=== PATIENT | female | born 1985 | race Caucasian/White ===

== ENCOUNTER → 2021-04-13 14:38 | Outpatient (BNVA) | payer OTHER, SELFPAY | PROVIDERS: Visit Provider Obstetrics & Gynecology | DX: Z12.4 Encounter for screening for malignant neoplasm of cervix (principal) | CPT/HCPCS: 87624 ==

== ENCOUNTER → 2021-05-11 08:25 | Outpatient (BNVA) | payer OTHER, SELFPAY | PROVIDERS: Visit Provider Obstetrics & Gynecology | DX: R87.810 Cervical high risk human papillomavirus (HPV) DNA test positive (principal) | CPT/HCPCS: 81025; 88305 ==

== ENCOUNTER → 2021-06-30 08:13 | Outpatient (BNVA) | payer OTHER, SELFPAY | PROVIDERS: Visit Provider Family Medicine | DX: M25.572 Pain in left ankle and joints of left foot (principal) | CPT/HCPCS: 73600 ==

== ENCOUNTER 2021-10-15 10:33 | Outpatient (CLI) | payer OTHER, SELFPAY ==
--- NOTE | 2021-10-15 12:32 | ECG_ITS ---
[facility] Test Date: 2021-10-15 Pat Name: Ruben Mtz Department: Room: Gender: Female Chair Installer: : 1985 Requested By: Francisco J Simpson Order Number: [id number] Neal MD: Anayeli Crawford M.D. Measurements Intervals Maud Rate: 90 P: 54 FL: 149 QRS: 17 QRSD: 103 T: 52 QT: 335 QTc: 410 Interpretive Statements SINUS RHYTHM POSSIBLE LEFT ATRIAL ENLARGEMENT [-0.1mV P-WAVE IN V1/V2] No previous ECG available for comparison Electronically Signed On 10-15-2021 18:55:04 CDT by Anayeli Crawford M.D. [email or web address] [facility] residential centerSocialRepmemorial health systemGRNE Solutions/store/[id number]
== END 2021-10-15 10:34 | disposition home or self-care (01) ==
LOC: RT 10:35
PROVIDERS: PCP Family Medicine; Visit Provider Family Medicine
DX: R00.2 Palpitations (principal); Z76.89 Persons encountering health services in other specified circumstances; R03.0 Elevated blood-pressure reading, without diagnosis of hypertension
CPT/HCPCS: 80053; 83735; 84439; 84443; 85025; 93005

== ENCOUNTER → 2021-11-16 10:06 | Outpatient (BNVA) | payer OTHER, SELFPAY | PROVIDERS: PCP Family Medicine; Visit Provider Obstetrics & Gynecology | DX: N72 Inflammatory disease of cervix uteri (principal); B97.7 Papillomavirus as the cause of diseases classified elsewhere | CPT/HCPCS: 87624 ==

== ENCOUNTER → 2022-02-05 13:33 | Outpatient (BNVA) | payer OTHER, SELFPAY | PROVIDERS: PCP Family Medicine; Visit Provider Obstetrics & Gynecology | DX: R87.619 Unspecified abnormal cytological findings in specimens from cervix uteri (principal); A49.9 Bacterial infection, unspecified; N39.0 Urinary tract infection, site not specified | CPT/HCPCS: 84315; 88305 ==

== ENCOUNTER → 2022-04-09 17:20 | Outpatient (BNVA) | payer OTHER, SELFPAY | PROVIDERS: PCP Family Medicine; Visit Provider Nurse Practitioner Women's Health | DX: Z20.2 Contact with and (suspected) exposure to infections with a predominantly sexual mode of transmission (principal); N89.8 Other specified noninflammatory disorders of vagina | CPT/HCPCS: 87481; 87491; 87512; 87591; 87661; 87798; 87799 ==

== ENCOUNTER → 2022-06-28 12:00 | Outpatient (BNVA) | payer OTHER, SELFPAY | PROVIDERS: PCP Family Medicine; Visit Provider Obstetrics & Gynecology | DX: Z01.419 Encounter for gynecological examination (general) (routine) without abnormal findings (principal); B97.7 Papillomavirus as the cause of diseases classified elsewhere; N72 Inflammatory disease of cervix uteri | CPT/HCPCS: 87624 ==

== ENCOUNTER → 2022-11-11 13:53 | Outpatient (BNVA) | payer OTHER, SELFPAY | PROVIDERS: PCP Family Medicine; Visit Provider Emergency Medicine | DX: J06.9 Acute upper respiratory infection, unspecified (principal); Z20.822 Contact with and (suspected) exposure to COVID-19 | CPT/HCPCS: 87426 ==

== ENCOUNTER → 2022-12-02 08:32 | Outpatient (BNVA) | payer OTHER, SELFPAY | PROVIDERS: PCP Family Medicine; Visit Provider Family Medicine | DX: I10 Essential (primary) hypertension (principal); R00.2 Palpitations | CPT/HCPCS: 80053; 80061; 84443; 85025 ==

== ENCOUNTER 2023-01-13 16:13 | Emergency (ER) | payer OTHER, SELFPAY ==
[2023-01-13 16:17] VITALS: BP 164/118; PULSE 118; RESP 16; TEMP 36.6; O2SAT 100; BMI 37.8
[2023-01-13 16:48] LABS: Basophils % 0.3 %; Eosinophils # 0.1 10^3/uL (0.0-0.8); Eosinophils % 0.5 %; Lymphocytes % 41.4 %; Mean Corpuscular HGB Conc 33.4 g/dL (30-55); Mean Corpuscular Hemoglobin 28.6 pg (27-33); Mean Corpuscular Volume 85.6 fl (85-98); Mean Platelet Volume 9.1 fL (7.4-10.4); Monocytes # 0.6 10^3/uL (0.2-0.9); Monocytes % 6.4 %; Neutrophils % 51.2 %; Nucleated Red Blood Cells % 0 %; Platelet Count 375 10^3/cmm (157-399); Red Blood Count 4.44 10^6/uL (3.85-5.65); White Blood Count 9.58 10^3/uL (3.29-11.43)
[2023-01-13 17:04] LABS: HCG, Serum Qual Negative (Negative)
--- NOTE | 2023-01-13 17:06 | W.ED.ABDPA2 ---
HPI - Abdominal Pain General: Chief Complaint: Abdominal Pain Stated Complaint: lower abdomin pain Time Seen by Provider: 01/13/23 16:24 History of Present Illness: 37-year-old female comes in today with complaints of right upper quadrant pain that started around 230 this afternoon. Patient reported as sharp and very uncomfortable. Patient has been having abdominal pain on and off for the last 3 weeks and was scheduled for gallbladder ultrasound tomorrow. Patient reports nausea with some loose stools but no vomiting. Patient has no history of prior surgeries. Patient does have some history of hypertension and hyperglycemia and nonepileptic seizures. Patient appears nontoxic. Patient appears in mild pain. Associated Symptoms: Reports nausea; Denies constipation, diarrhea, fever(s) and vomiting Related Data: Date of Last Menstrual Period: 12/21/22 Review of Systems General: Reports: 10 or more systems reviewed and unremarkable except in HPI and below Const: Denies: fever(s) Card: Denies: chest pain Resp: Denies: dyspnea GI: Reports: abdominal pain and nausea; Denies: vomiting, diarrhea or constipation : Denies: flank pain or difficulty voiding Musc: Denies: neck pain or back pain Skin/Breast: Denies: rash PFSH ED PFSH: Medical History Abnormal Pap smear of cervix Bartholin's cyst Psychiatric care Family History Grandfather Heart attack maternal Cancer throat cancer, maternal Diabetes maternal Hyperlipidemia maternal Hypertension maternal Father CAD (coronary artery disease) Family/Other CAD (coronary artery disease) maternal aunt Grandmother Diabetes paternal Sister Ovarian cyst Denies family history of Ovarian cancer Heart disease Chronic kidney disease (CKD) Anesthesia complication Family history of thyroid problem Bleeding disorder Stroke Social History Substance/Drug Use: never Female Reproductive History: Date of last menstrual period: 12/21/22 Spontaneous abortions: No Physical Exam Const: COMMON NORMALS: alert HENMT: COMMON NORMALS: normocephalic HEAD & SCALP: normocephalic MOUTH: Normal oral and palatal mucosa present Neck/C-Spine: COMMON NORMALS: full ROM Resp: COMMON NORMALS: normal respiratory effort and clear to auscultation bilaterally AUSCULTATION: clear to auscultation bilaterally Cardio: COMMON NORMALS: regular rate and regular rhythm RATE: regular rate RHYTHM: regular rhythm GI: COMMON NORMALS: Soft to palpation AUSCULTATION: Yes normoactive bowel sounds PALPATION: Yes Soft to palpation and Yes Tenderness to palpation present (GI) Details: RUQ : COMMON NORMALS: Yes no CVA tenderness BLADDER/KIDNEY EXAM: Yes no CVA tenderness Back/Pelvis: COMMON NORMALS: no CVA tenderness and thoracic and lumbar spine normal to inspection Extremity: COMMON NORMALS: normal to inspection Neuro: SENSORIUM/ORIENTATION: Yes alert Skin: COMMON NORMALS: turgor normal GENERAL SKIN EXAM: turgor normal Course Vital Signs: Vital signs: Vital Signs Temperature 97.8 F 01/13/23 16:17 Pulse Rate 118 H 01/13/23 16:17 Respiratory Rate 16 01/13/23 16:17 Blood Pressure 164/118 01/13/23 16:17 Pulse Oximetry 100 01/13/23 16:17 Oxygen Delivery Me thod Room Air 01/13/23 16:17 MDM - Abdominal Pain Medical Decision Making 37-year-old female comes in today for complaints of right upper quadrant abdominal pain. Patient reports increased pain and discomfort today which prompted her to come to the ER. Patient is scheduled to have a ultrasound of the gallbladder tomorrow. On exam patient has right upper quadrant abdominal tenderness. No CVA tenderness. Abdomen soft with normal active bowel sounds. Vital signs are normal except for some mild elevation of blood pressure. Differential diagnosis includes but not limited to gallbladder colic, cholecystitis, cholelithiasis, pancreatitis, gastroenteritis, colitis. Laboratory values were unremarkable. Ultrasound of the gallbladder was normal. Reviewed exam with patient recommended follow-up with primary care for further examination with possible HIDA scan for further evaluation of gallbladder. Discussed need for return to the ER for worsening symptoms such as blood in vomit or stool, high fever, or new concerns. Patient stated understanding and agreed to plan. Lab Data 01/13/23 16:41 01/13/23 16:41 Labs/Radiology: Radiology Impressions Gallbladder Ultrasound 01/13/23 17:13 IMPRESSION: No abnormal findings. Laboratory Results WBC 9.58 10^3/uL (3.29-11.43) 01/13/23 16:41 RBC 4.44 10^6/uL (3.85-5.65) 01/13/23 16:41 Hgb 12.70 g/dL (11.27-16.99) 01/13/23 16:41 Hct 38.0 % (36-47) 01/13/23 16:41 MCV 85.6 fl (85-98) 01/13/23 16:41 MCH 28.6 pg (27-33) 01/13/23 16:41 MCHC 33.4 g/dL (30-55) 01/13/23 16:41 RDW 12.0 % (12.1-15.1) L 01/13/23 16:41 Plt Count 375 10^3/cmm (157-399) 01/13/23 16:41 MPV 9.1 fL (7.4-10.4) 01/13/23 16:41 Neut % (Auto) 51.2 % 01/13/23 16:41 Lymph % (Auto) 41.4 % 01/13/23 16:41 Morton % (Auto) 6.4 % 01/13/23 16:41 Eos % (Auto) 0.5 % 01/13/23 16:41 Baso % (Auto) 0.3 % 01/13/23 16:41 Neut # (Auto) 4.90 10^3/uL (1.8-7.7) 01/13/23 16:41 Lymph # (Auto) 4.0 10^3/uL (0.8-4.8) 01/13/23 16:41 Morton # (Auto) 0.6 10^3/uL (0.2-0.9) 01/13/23 16:41 Eos # (Auto) 0.1 10^3/uL (0.0-0.8) 01/13/23 16:41 Baso # (Auto) 0.0 10^3/uL (0.0-0.1) 01/13/23 16:41 Nucleated RBC % (auto) 0 % 01/13/23 16:41 Nucleated RBCs # 0.0 /100WBC 01/13/23 16:41 Sodium 138 mmol/L (136-145) 01/13/23 16:41 Potassium 3.3 mmol/L (3.5-5.1) L 01/13/23 16:41 Chloride 102 mmol/L (98-107) 01/13/23 16:41 Carbon Dioxide 24 mmol/L (22-29) 01/13/23 16:41 Anion Gap 15.3 (5-19) 01/13/23 16:41 BUN 7 mg/dL (6-20) 01/13/23 16:41 Creatinine 0.6 mg/dL (0.5-0.9) 01/13/23 16:41 GFR Calculation 113.8 mL/min (90-130) 01/13/23 16:41 Glucose 104 mg/dL (65-115) 01/13/23 16:41 Calculated Osmolality 284 mOsm/kg (285-295) L 01/13/23 16:41 Calcium 9.2 mg/dL (8.5-10.5) 01/13/23 16:41 Total Bilirubin 0.2 mg/dL (0.15-1.2) 01/13/23 16:41 AST 14 U/L (0-32) 01/13/23 16:41 ALT 12 U/L (0-33) 01/13/23 16:41 Alkaline Phosphatase 66 U/L (35-105) 01/13/23 16:41 Total Protein 7.5 g/dL (6.6-8.7) 01/13/23 16:41 Albumin 4.1 g/dL (3.5-5.2) 01/13/23 16:41 Globulin 3.4 g/dL (1.3-4.6) 01/13/23 16:41 Lipase 29 U/L (13-60) 01/13/23 16:41 HCG, Qual Negative (Negative) 01/13/23 16:41 Urine Color Light yellow (Yellow) 01/13/23 17:18 Urine Appearance Clear (CLEAR) 01/13/23 17:18 Urine pH 6 (5-7) 01/13/23 17:18 Ur Specific [place] 1.010 (1.005-1.030) 01/13/23 17:18 Urine Protein Neg (Negative) 01/13/23 17:18 Urine Glucose (UA) Norm (Normal) 01/13/23 17:18 Urine Ketones Negative (Negative) 01/13/23 17:18 Urine Blood Neg (Negative) 01/13/23 17:18 Urine Nitrate Negative (Negative) 01/13/23 17:18 Urine Bilirubin Neg (Negative) 01/13/23 17:18 Urine Urobilinogen Norm mg/dL (Negative) 01/13/23 17:18 Ur Leukocyte Esterase Negative (Negative) 01/13/23 17:18 No radiology studies performed this visit Discharge Plan Discharge Patient Disposition: Home Clinical Impression: RUQ pain Condition: Stable Prescriptions: New hydrocodone-acetaminophen 5-325 mg tablet 1 tab PO Q6H PRN (Reason: pain) Qty: 10 0RF No Action fluticasone propionate [Flonase Allergy Relief] 50 mcg/actuation spray,suspension 1 spray intranasal DAILY Qty: 16 1RF Rx Instructions: administer into each nostril norgestimate-ethinyl estradiol [Tri-Sprintec (28)] 0.18/0.215/0.25 mg-35 mcg (28) tablet 1 tab PO DAILY Qty: 84 5RF silver nitrate applicators 75-25 % stick 1 applic topical ONCE Qty: 1 0RF Probiotic 15 billion cell capsule, sprinkle 1 cap PO DAILY Rx Instructions: do not crush/chew/cut; swallow whole OR may open and sprinkle in cold drink/food lisinopril 10 mg tablet 10 mg PO DAILY Qty: 90 1RF amlodipine 2.5 mg tablet 2.5 mg PO DAILY Qty: 90 2RF Discharge Orders: Discharge ED (Routine); Ordered 01/13/23 Ordered By: Karthik Clements Referrals: Francisco J Aranda DO [Primary Care Provider] - Discharge Diet: Advance as tolerated Discharge Activity: Increase activity as tolerated Patient Instructions: Abdominal Pain (ED), Opioid Safety Activity Restrictions/Additional Instructions: Follow-up with primary care for further evaluation and treatment. You may need to have further evaluation of your gallbladder with a HIDA scan. The scan injects dye into the gallbladder to monitor report dysmotility issues. The remainder of your tests today were unremarkable. I would recommend follow-up with primary care for further concerns. Return to ED for new concerns or worsening symptoms such as high fever, inability to hold fluids down, blood in vomit or stool. Coding Level of Care Code ED Firm Administrator for Drake Harper
[2023-01-13 17:10] LABS: Alanine Aminotransferase 12 U/L (0-33); Albumin Level 4.1 g/dL (3.5-5.2); Alkaline Phosphatase 66 U/L (35-105); Anion Gap 15.3 (5-19); Aspartate Amino Transferase 14 U/L (0-32); Blood Urea Nitrogen 7 mg/dL (6-20); Calcium 9.2 mg/dL (8.5-10.5); Carbon Dioxide 24 mmol/L (22-29); Chloride 102 mmol/L (98-107); Creatinine Clr Calc Pharmacy 150.2706; Globulin 3.4 g/dL (1.3-4.6); Glomerular Filtration Rate 113.8 mL/min (90-130); Glucose 104 mg/dL (65-115); Lipase 29 U/L (13-60); Osmolality Calculated 284 mOsm/kg (285-295); Potassium 3.3 mmol/L (3.5-5.1); Sodium 138 mmol/L (136-145); Total Bilirubin 0.2 mg/dL (0.15-1.2); Total Protein 7.5 g/dL (6.6-8.7)
--- NOTE | 2023-01-13 17:13 | USR_ITS ---
PROCEDURE INFORMATION: Exam: US Abdomen, Limited; Right Upper Quadrant Exam date and time: 01/13/2023 5:25 PM Age: 37 years old Clinical indication: Abdominal pain; Additional info: Ruq pain, nausea TECHNIQUE: Imaging protocol: Real time ultrasound of the abdomen with image documentation. Limited exam focused on the right upper quadrant. COMPARISON: No relevant prior studies available. FINDINGS: Liver: Normal. No masses. Liver measures 14.4 cm in length. Normal portal vein. Gallbladder: Normal. No gallstones. There is no gallbladder wall thickening. Biliary ducts: Normal. No stones. No dilation. Pancreas: Visualized pancreas is unremarkable. Right kidney: Normal. No mass. No hydronephrosis. Aorta: Aorta is normal as visualized. Inferior vena cava: Inferior vena cava is normal as visualized. US/US gall bladder [id number] IMPRESSION: No abnormal findings.
[2023-01-13 17:30] LABS: Add Urine Microscopic? NO; Charge for UA Resulting for Rev
[2023-01-13 17:42] LABS: Bilirubin Urine Neg (Negative); Blood Urine Neg (Negative); Glucose Urine UA Norm (Normal); Ketones Urine Negative (Negative); Leukocyte Esterase Urine Negative (Negative); Nitrate Urine Negative (Negative); Protein Urine Neg (Negative); Urine Appearance Clear (CLEAR); Urine Color Light yellow (Yellow); Urobilinogen Urine Norm (Negative); pH Urine 6 (5-7)
== END 2023-01-13 18:35 | disposition home or self-care (01) ==
PROVIDERS: Emergency Medicine; Emergency Provider Nurse Practitioner Family; PCP Family Medicine
DX: R10.11 Right upper quadrant pain (principal)
CPT/HCPCS: 36415; 76705; 80053; 81003; 83690; 84703; 85025; 99284

== ENCOUNTER 2023-03-08 07:01 | Outpatient (CLI) | payer OTHER, SELFPAY ==
--- NOTE | 2023-03-08 08:00 | NM_ITS ---
WS: [id number] NUCLEAR MEDICINE HIDA SCAN CLINICAL INFORMATION: RUQ pain, post-prandial n/v/bloating TECHNIQUE: Following intravenous administration of 4.8 mCi of technetium 99m mebrofenin, images of th e abdomen were obtained over the course of 60 minutes. Next, gallbladder ejection fraction was determ ined by obtaining preprandial and one-hour postprandial images of the gallbladder following oral mariposa stion of Ensure. COMPARISON: None. FINDINGS: Normal hepatic uptake at 5 minutes. Normal hepatic excretion. Normal common bile duct and small bowel activity. Gallbladder is visualized by 20 minutes. No evidence of acute cholecystitis. Decreased gallbladder ejection fraction 23%. Findings compatible with gallbladder dyskinesia. Recomme nd correlation for chronic cholecystitis. IMPRESSION: Decreased gallbladder ejection fraction 23%. Findings compatible with gallbladder dyskinesia. Recomm end correlation for chronic cholecystitis.
== END 2023-03-08 07:02 | disposition home or self-care (01) ==
PROVIDERS: PCP Family Medicine; Visit Provider Family Medicine
DX: R14.0 Abdominal distension (gaseous) (principal); R10.11 Right upper quadrant pain; R11.2 Nausea with vomiting, unspecified; R93.2 Abnormal findings on diagnostic imaging of liver and biliary tract
CPT/HCPCS: 78227; A9537

== ENCOUNTER 2023-04-18 05:41 | Day surgery (SDC) | payer OTHER, SELFPAY ==
[2023-04-18] VITALS (10 sets, daily range): BP systolic 122–156; BP diastolic 78–118; PULSE 54–99; RESP 14–18; TEMP 36.2–36.4; O2SAT 93–100
--- NOTE | 2023-04-18 06:23 | W.PM.OPSFHP ---
Same Day Surgery H&P Indication for Procedure/HPI DATE OF PROCEDURE: April 18, 2023 CHIEF COMPLAINT/INDICATIONFOR SURGICAL PROCEDURE: chronic cholecystitis PREOP DIAGNOSIS: chronic cholecystitis PLANNED PROCEDURE: Operation Date: 04/18/23 07:00 Proposed Procedures p 42968 lap khadijah R10.11(Not Applicable) - Byron Jiménez MD Medications/Allergies* Home Medications Medication Instructions Recorded Confirmed Type lactobacillus combo no.11 15 1 cap PO DAILY 04/09/22 04/15/23 History billion cell sprinkle capsule (Probiotic) fluticasone propionate 50 1 spray intranasal DAILY PRN 04/15/23 04/15/23 History mcg/actuation nasal allergies spray,suspension (Flonase Allergy Relief) jakxrvjtqcfd-Pg-phin-minerals 18 1 tab PO DAILY 04/15/23 04/15/23 History mg-0.4 mg tablet Allergies/Adverse Reactions Allergy/AdvReac Type Severity Reaction Status Date / Time No Known Allergies Allergy Verified 04/18/23 06:00 Pertinent History/Comorbid Conditions* Medical History (Updated 03/11/23 @ 13:05 by Byron Jiménez MD) Abnormal Pap smear of cervix Psychiatric care Bartholin's cyst Family History (Updated 04/07/20 @ 13:29 by Joan Aragon LPN) Diabetes Grandfather maternal Grandmother paternal Ovarian cyst Sister CAD (coronary artery disease) Father Family/Other maternal aunt Hyperlipidemia Grandfather maternal Heart attack Grandfather maternal Cancer Grandfather throat cancer, maternal Hypertension Grandfather maternal Denies family history of Ovarian cancer Heart disease Chronic kidney disease (CKD) Anesthesia complication Family history of thyroid problem Bleeding disorder Stroke Social History Substance/Drug Use: never Pertinent Exam Findings alert, oriented x 3, clear to auscultation bilaterally and regular rate & rhythm Recommendations Surgery/Procedure today Coding Level of Care Code Acute Code for Chg Fwd
[2023-04-18] MEDS: sodium chloride 0.9% 1,000 ML 30 ML IV (06:53)
[2023-04-18] MEDS: scopolamine 1.5 Patch 1 PATCH TRANSDERMA (06:54)
[2023-04-18 06:59] LABS: OR HCG Qualitative Urine Negative (Negative)
[2023-04-18] MEDS: ceFAZolin 2,000 MG in sodium chloride 0.9% (plus) 50 ML 100 MG IV (07:00)
--- NOTE | 2023-04-18 07:19 | P.ANESASSM_ITS ---
Pre-Anesthetic Assessment Height/Weight: Height 1.63 m Weight 92.986 kg Temp Pulse Resp BP Pulse Ox O2 Del Method 97.5 F L 99 18 156/118 99 Room Air 04/18/23 06:45 04/18/23 06:45 04/18/23 06:45 04/18/23 06:45 04/18/23 06:45 04/18/23 06:45 Preop Diagnosis: chronic cholecystitis Operation Date: 04/18/23 07:00 Proposed Procedures p 22691 lap khadijah R10.11(Not Applicable) - Byron Jiménez MD Familial anesthetic complications: Mother is slow to wake up Was Beta Zain taken within 24 hours: N/A Was Clonidine taken within 24 hours: N/A Last intake: Intake Last Liquid Date 04/17/23 Last Liquid Time 23:00 Last Solid Date 04/17/23 Last Solid Time 23:00 Social No alcohol and No tobacco Exam alert, oriented x 3, clear to auscultation bilaterally and regular rate & rhythm Airway Submandibular: within normal limits Cervical ROM: within normal limits Mallampati: Class I Dentition: full History/ROS No significant history except as noted Pulmonary None reported CV/HEM Hypertension and Palpitations None reported Hepatic None reported GI None reported Metabolic Hyperlipidemia and Morbid Obesity hypoglycemic issues [facility] None reported Neuropsych None reported Anesthetic Plan ASA status: 2 Anesthesia: General Medications/Allergies Home Medications Medication Instructions Recorded Confirmed Last Taken Type lactobacillus combo no.11 15 1 cap PO DAILY 04/09/22 04/15/23 04/17/23 History billion cell sprinkle capsule (Probiotic) norgestimate-ethinyl estradiol 1 tab PO DAILY #84 tabs 07/01/22 04/15/23 04/15/23 Rx 0.18 mg/0.215mg/0.25mg-35 mcg(28)tablet (Tri-Sprintec (28)) amlodipine 2.5 mg tablet 2.5 mg PO DAILY #90 tabs 08/30/22 04/15/23 04/18/23 Rx fluticasone propionate 50 1 spray intranasal DAILY PRN 04/15/23 04/15/23 04/15/23 History mcg/actuation nasal allergies spray,suspension (Flonase Allergy Relief) hyrhplvhoqoy-Im-padg-minerals 18 1 tab PO DAILY 0204/15/23 04/17/23 History mg-0.4 mg tablet Allergies Allergy/AdvReac Type Severity Reaction Status Date / Time No Known Allergies Allergy Verified 04/18/23 06:00 Current Medications Generic Name Dose Route Start Last Admin Trade Name García PRN Reason Stop Dose Admin Sodium Chloride 1,000 mls @ 30 mls/hr 04/18/23 06:45 04/18/23 06:53 Sodium Chloride 0.9% IV 04/19/23 06:44 30 mls/hr .Q24H KAITLIN Administration PFSH Anesthesia Medical History (Updated 03/11/23 @ 13:05 by Byron Jiménez MD) Abnormal Pap smear of cervix Psychiatric care Bartholin's cyst Family History Grandfather Heart attack maternal Cancer throat cancer, maternal Diabetes maternal Hyperlipidemia maternal Hypertension maternal Father CAD (coronary artery disease) Family/Other CAD (coronary artery disease) maternal aunt Grandmother Diabetes paternal Sister Ovarian cyst Denies family history of Ovarian cancer Heart disease Chronic kidney disease (CKD) Anesthesia complication Family history of thyroid problem Bleeding disorder Stroke Social History Substance/Drug Use: never Female Reproductive History Date of last menstrual period: 03/16/23 Spontaneous abortions: No Data Anesthesia Cardiac Studies: No Data to Display
[2023-04-18] MEDS: lidocaine-epi 1% 20 mL INJ INJECTION (07:23)
[2023-04-18] MEDS: BUPivacaine 0.25% INJ 10 mL INJECTION (07:23)
--- NOTE | 2023-04-18 08:42 | P.OP_ITS ---
Operative Report Date of procedure: April 18, 2023 Pre-op diagnosis: Chronic cholecystitis Post-op diagnosis: Chronic cholecystitis Procedure done: laparoscopic cholecystectomy Specimens removed/disposition: Gallbladder Surgeon: Byron Jiménez MD Machine Assistant: IGOR OR Staff Estimated blood loss: 5 Findings: Chronically inflamed gallbladder, there were adhesions from the omentum to the gallbladder and from the periduodenal tissue to the gallbladder. The gallbladder was intrahepatic. Brief History: 37-year-old female with chronic cholecystitis who presented for lap khadijah. After discussion of all the risk and benefits as documented in my preop note we decided to proceed with surgery. Procedure: Patient was brought into the OR, she was placed in a supine position. General esthesia was given. The abdomen was prepped and draped in the usual sterile fashion. Timeout was conducted. The abdomen was accessed via infraumbilical incision with an open technique, a 12 mm Funez trocar was placed and fixed to the fascia with a 0 Vicryl. Initial pneumoperitoneum was achieved and no evidence of visceral injury was noted upon entry. Additional 5 mm trocars were placed in the epigastric right upper quadrant and right flank positions under direct visualization. The patient was positioned in reverse Trendelenburg position with the left side down. The gallbladder was retracted cephalad from the fundus. Additions from the omentum to the gallbladder and from the periduodenal tissue to the gallbladder were carefully taken down using electrocautery and blunt dissection. There was also an additional from some fat to the liver capsule that was removed with electrocautery. The infundibulum of the gallbladder was retracted in the inferolateral direction. The peritoneum anterior to hepatocystic triangle was opened with electrocautery, the opening was carried in the medial and lateral directions to the edges of the liver and then to the size of the gallbladder to allow for better exposure. Gallbladder was noted to be intra hepatic, the fundus of the gallbladder was almost completely surrounded by the liver. Careful dissection was done on the hepatocystic triangle using blunt dissector and electrocautery, the cystic duct and artery were able to be encircled, the lower third of the gallbladder was elevated from the liver bed and a critical view of safety was achieved. The cystic duct and artery were double clipped proximally and single clipped distally and transected. The gallbladder was removed from the liver bed using electrocautery, due to the intrahepatic configuration of the gallbladder removal was difficult and a hole in the posterior wall of the gallbladder was made during removal. Bile leaking from the gallbladder was aspirated and the gallbladder fossa and perihepatic region was suctioned and irrigated. The specimen was completely removed from the liver and retrieved via the umbilical trocar site in an Endo Catch bag. The gallbladder fossa was checked as well as the liver bed no evidence of bleeding or bile leak was noted, clips were noted in a good position additional irrigation was done until the fluid was completely clear. The umbilical trocar site was closed under direct visualization using a 0 Vicryl in a suture passer. I then proceeded to remove the epigastric trocar under direct visualization and the right flank trocar under direct visualization. The right upper quadrant trocar was used to evacuate the pneumoperitoneum and ascending sequently removed. Wounds were closed in layers using #4-0 Monocryl for the skin and Dermabond was applied. Local anesthesia was infiltrated on all points. At the end of the procedure all counts were correct. The patient tolerated well the procedure and was transferred to the PACU in stable condition.
[2023-04-18] MEDS: ondansetron 2 mg/ML SDV 2 mL 4 MG IVP ×2 (09:02→09:14)
[2023-04-18] MEDS: fentaNYL 50 mcg/mL INJ 2mL IVP (09:06)
[2023-04-18] MEDS: diphenhydrAMINE 50 mg/mL SDV 1mL 12.5 MG IVP (09:45)
[2023-04-18] MEDS: oxyCODONE-APAP 5-325 mg Tablet 1 TAB PO (10:00)
[2023-04-18 10:28] LABS: Glucose Point of Care 105 mg/dL (70-110)
--- NOTE | 2023-04-18 16:14 | ANE.PACU2 ---
Inpatient post-anesthesia follow up: Airway intact: Yes Vital signs: Temperature 97.5 F Pulse Rate 60 Respiratory Rate 16 Blood Pressure 134/95 Pulse Oximetry 100 Oxygen Delivery Me thod Room Air Oxygen Flow Rate 6 Fraction of Inspir ed Oxygen Hydration adequate: Yes Nausea and vomiting: No Pain level: 3 Mental status: Baseline
== END 2023-04-18 10:28 | disposition home or self-care (01) ==
PROVIDERS: PCP Family Medicine; Visit Provider Surgery
PROC: 0FT44ZZ Resection of Gallbladder, Percutaneous Endoscopic Approach (ICD-10-PCS; CPT 47562; principal; 2023-04-18 07:00)
DX: K80.10 Calculus of gallbladder with chronic cholecystitis without obstruction (principal); I10 Essential (primary) hypertension; E78.5 Hyperlipidemia, unspecified; E66.01 Morbid (severe) obesity due to excess calories; Z68.35 Body mass index [BMI] 35.0-35.9, adult
CPT/HCPCS: 47562; 36416; 81025; 82962; 84703; 88304; J0131; J0690; J1100; J1200; J1885; J2250; J2405; J2704; J2710; J3010; J3490; J7030

== ENCOUNTER → 2023-07-04 15:12 | Outpatient (BNVA) | payer OTHER, SELFPAY | PROVIDERS: PCP Family Medicine; Visit Provider Nurse Practitioner Women's Health | DX: N72 Inflammatory disease of cervix uteri (principal); B97.7 Papillomavirus as the cause of diseases classified elsewhere | CPT/HCPCS: 87624 ==